=== PATIENT | male | born 1960 | race African-American/Black ===

== ENCOUNTER → 2016-06-19 | Day surgery (SDC) | payer MEDICARE, BC, MEDICAID ==
--- NOTE | 2016-06-18 14:07 | Pre-Procedure Note/Attestation ---
Pre-Procedure Note/Attestation Complete Prior to Procedure Planned Procedure: right - Removal of cataract and placement of intraocular lens, right eye Procedure Narrative: Removal of cataract and placement of intraocular lens, right eye Indications for Procedure Pre-Operative Diagnosis: cataract, nuclear, anterior subcapsular, right eye Attestation I attest that I discussed the nature of the procedure; its benefits; risks and complications; and alternatives (and the risks and benefits of such alternatives ), prior to the procedure, with the patient (or the patient's legal admissions representative). I attest that, if there was a reasonable possibility of needing a blood transfusion, the patient (or the patient's legal admissions representative) was given the [place] Department [facility] [employer] Services standardized written summary, pursuant to the Genaro Marcel Blood Safety Act ([place] Health and Safety Code # 1645, as amended). I attest that I re-evaluated the patient just prior to the surgery and that there has been no change in the patient's H&P, except as documented below: Benito García MD Jun 18, 2016 14:07
[2016-06-19] VITALS (8 sets, daily range): BP systolic 97–112; BP diastolic 59–66
[~2016-06-19] VITALS: Ht 182.9 cm; Wt 108.9 kg
[~2016-06-19] MED LIST: ALLOPURINOL100 M1 ORAL; ATORVASTATIN CA40 MG ORAL; Akten 3.5% 1ml Btl ONE; BSS 15ml BTL ONE; BSS 500ml btl ONE; BUMETANIDE2 MG ORAL; CARVEDILOL25 MG ORAL; CATAPRES0.1 MG ORAL; CELEXA20 MG ORAL; COLACE100 MG ORAL; COLCHICINE0.6 M1 PO; CORLANOR5 MG PO; COUMADIN1 MG ORAL; COUMADIN3 MG ORAL; COUMADIN6 MG ORAL; Carbachol 0.01% Op Soln 1.5ml vial ONE; Cyclopentolate 1% Opth Sol ONE; Dexamethasone 4mg/ml vial ONE; EPINEPHrine 1mg/1ml Amp ONE; FOLIC ACID1 MG ORAL; Fluorescein Strips ONE; Flurbiprofen 0.03% Opth Sol 2.5ml ONE; Gatifloxacin Opth Solution 0.5% ONE; HUMALOG KW200 UNIT/1 SQ; ISOSORBIDE MON120 M1 PO; LANTUS SOL100 UNIT/1 SUBQ; LISINOPRIL20 MG ORAL; Lidocaine 1% MPF 10mg/ml 5ml ONE; Lidocaine 4% Amp ONE; MULTIVITAMINS1 EA11 ORAL; Maxitrol Opth Oint 3.5gm ONE; Midazolam 2mg/2ml Inj ONE; NORCO 5-325 TA1 EACH ORAL; NS Irrig 1000ml ONE; Phenylephrine 10% Opth Soln 5ml ONE; Povidone-Iodine 5% opth solution ONE; Pred Forte 1% Opth Susp 1ml ONE; Pred Forte 1% Opth Susp 1ml RIGHT EYE ONE; Sodium Hyaluronate 10 mg/ml 0.85ml ONE; Sterile Water Irrig 1000ml IRRIG ONE; TEMAZEPAM15 MG ORAL; Tetracaine 0.5% Opth Soln ONE; VITAMIN D250000 UNI1 ORAL; fentaNYL 100 mcg/2 mL IV ONE
[2016-06-19] MEDS: Akten 3.5% 1ml Btl RIGHT EYE SCH ×3 (10:25→10:58)
[2016-06-19] MEDS: Cyclopentolate 1% Opth Sol RIGHT EYE SCH ×3 (10:25→10:58)
[2016-06-19] MEDS: Phenylephrine 10% Opth Soln 5ml RIGHT EYE SCH ×3 (10:25→10:58)
[2016-06-19] MEDS: Flurbiprofen 0.03% Opth Sol 2.5ml RIGHT EYE SCH ×3 (10:25→10:58)
[2016-06-19] MEDS: Gatifloxacin Opth Solution 0.5% RIGHT EYE SCH ×3 (10:26→10:58)
--- NOTE | 2016-06-19 12:31 | Brief Operative Note ---
Immediate Post Operative Note Operative Note Pre-op Diagnosis: cataract, nuclear, anterior subcapsular, right eye Procedure: phaco pc iol, OD use of vision blue Post-op Diagnosis: same as pre-op Surgeon: Glenna García MD Circuit Walker: None Anesthesiologist: Shannon Abarca CRNA Anesthesia: local, MAC Specimen: none Complications: none Condition: stable Estimated Blood Loss: none Implant(s) used?: Yes - tecnis [id number] +18.0 Benito García MD Jun 19, 2016 12:31
--- NOTE | 2016-06-19 12:32 | Discharge Instructions ---
Discharge Instructions Discharge Instructions Follow Up Orders Leave shield in place except to place eye drops Continue eye drops Followup in Dr García's office tomorrow For Congestive Heart Failure Reminder Report to your physician any weight gain of 5 pounds or more in one week. Benito García MD Jun 19, 2016 12:32
--- NOTE | 2016-06-19 12:38 | Anethesia Preoperative Eval ---
Anesthesia Pre-op PMH/ROS General Date of Evaluation: Jun 19, 2016 Time of Evaluation: 11:30 Anesthesiologist: yan ASA Score: ASA 3 Mallampati Score Class I : Soft palate, uvula, fauces, pillars visible Class II: Soft palate, uvula, fauces visible Class III: Soft palate, base of uvula visible Class IV: Only hard plate visible Mallampati Classification: Class III Surgeon: iesha Diagnosis: cataract Surgical Procedure: catract extraction Anesthesia History: none Family History: no anesthesia problems Allergies: Coded Allergies: No Known Allergies (Unverified , 06/06/15) Medications: see eMAR Past Medical History Cardiovascular: Reports: CAD, HTN, other - AICD , valve dz Gastrointestinal/Genitourinary: Reports: ESRD - dialysis 06/18/16 Neurologic/Psychiatric: Denies: CVA, TIA, dementia, depression/anxiety, other Endocrine: Reports: DM HEENT: Reports: cataract (L) Hematology/Immune: Denies: DVT, anemia, bleeding disorder, other Musculoskeletal/Integumentary: Denies: DDD, DJD, OA, RA, edema, other Other: obesity PSxH Narrative: AVR CABG x2 Anesthesia Pre-op Phys. Exam Physician Exam Last Vital Signs Date Time Temp Pulse Resp B/P Pulse Ox O2 Delivery O2 Flow Rate FiO2 06/19/16 10:32 98.0 81 18 104/59 98 Room Air Constitutional: NAD Neurologic: CN 2-12 intact Cardiovascular: RRR Respiratory: CTA Gastrointestinal: S/NT/ND Airway Exam Mallampati Classification 3 Mallampati Score: Class III MO: full Neck: thick ROM: full Dentures: no lower, no upper Anesthesia Pre-op A/P Labs Chemistry Test 06/19/16 10:45 Potassium Level 5.0 mEQ/L (3.4-4.9) H Studies Pre-op Studies: EKG - SR Risk Assessment & Plan Plan: mac Status Change Before Surgery: No Pre-Antibiotics Drug: none BRIANNA STOVALL CRNA Jun 19, 2016 12:38
--- NOTE | 2016-06-19 12:39 | Immediate Post-Op Evaluation ---
Immediate Post-Op Evalulation Immediate Post-Op Evalulation Procedure: cataract extraction with IOL Date of Evaluation: Jun 19, 2016 Time of Evaluation: 12:30 IV Fluids: 200 Blood Pressure Systolic: 109 Blood Pressure Diastolic: 81 Pulse Rate: 83 Respiratory Rate: 14 O2 Sat by Pulse Oximetry: 98 Temperature (Fahrenheit): 97.8 Nausea: No Vomiting: No Complications none Patient Status: awake, reacts Hydration Status: adequate Drug: none BRIANNA STOVALL CRNA Jun 19, 2016 12:39
--- NOTE | 2016-06-19 12:41 | 48 Hour Post Anesthesia Eval ---
Post Anesthesia Evaluation Procedure: cataract extraction with IOL right eye Date of Evaluation: Jun 19, 2016 Time of Evaluation: 12:40 Blood Pressure Systolic: 105 0: 60 Pulse Rate: 75 Airway: patent Nausea: No Vomiting: No Hydration Status: adequate Cardiopulmonary Status: normal Mental Status/LOC: patient returned to baseline Post-Anesthesia Complications: none Follow-up care needed: N/A BRIANNA STOVALL CRNA Jun 19, 2016 12:41
--- NOTE | 2016-06-19 21:48 | Operative Note - Dictated ---
DATE OF SURGERY: 06/19/2016 SURGEON: Benito García M.D. CREMATORY ATTENDANT SURGEON: None. ANESTHESIOLOGIST: Shannon Abarca C.R.N.A. ANESTHESIA: Local/standby/monitored anesthesia care. PREOPERATIVE DIAGNOSES: Cataract, nuclear, anterior subcapsular, right eye. POSTOPERATIVE DIAGNOSES: Cataract, nuclear, anterior subcapsular, right eye. PROCEDURE: 1. Phacoemulsification of cataract, right eye. 2. Use of VisionBlue, right eye. 3. Placement of PC IOL, OD SPECIMENS: None. COMPLICATIONS: None. INDICATIONS FOR SURGERY: The patient has had painless progressive decrease in visual acuity in the right eye secondary to cataract. The patient understands the risks of surgery including infection, bleeding, need for further surgery, loss of vision, no improvement in vision, loss of the eye, loss of life, glaucoma, retinal detachment, understands these risks and elects to proceed with surgery. FINDINGS: The patient had a +3 anterior subcapsular cataract which was in the central approximate 5 mm and a +2 to 3 nuclear sclerotic cataract. Operative Note: After informed consent was obtained, the patient was brought into the operating room, placed in supine position. Cardiac and respiratory monitors were attached. A time-out was performed and all criteria were met and everyone in the room agreed. The right eye was then draped and prepped in sterile manner for ocular surgery. A lid speculum was placed in the eye. Shugarcaine was injected into the 9 o'clock limbus. A conjunctiva peritomy from approximately 9 o'clock to 10:30 was made and dissected posteriorly. Hemostasis was obtained with bipolar cautery. A 2.8 mm limbal incision was made centered at approximately 9:30 and dissected anteriorly. A paracentesis was made at approximately 12 o'clock and air was injected into the anterior chamber followed by VisionBlue. VisionBlue was then irrigated from the anterior chamber. Healon was then injected into the anterior chamber and a 2.8 mm keratome was then used to enter the anterior chamber at the limbal incision. An anterior capsulorrhexis was then performed without difficulty. Hydrodissection and hydrodelineation of the lens was then performed. The lens was then phacoemulsified using [id number] four-quadrant technique. Residual cortical material was then aspirated. Healon was injected into the anterior chamber and capsular bag. The lens was taken from its package, placed into the cartridge and the tip of the cartridge was placed through the limbal incision and the lens was injected into the capsular bag and centered nicely with a Sinskey hook. Healon was aspirated from the anterior chamber and capsular bag. One 10-0 nylon interrupted suture was then placed through the limbal incision. The knot was rotated and buried. Care was taken during the entire procedure not to touch the endothelium and the wound was checked and found to be watertight at the limbus and the paracentesis site. The paracentesis site was hydrated closed. The conjunctiva was then closed with forceps cautery. The lid speculum and drapes were removed from the eye. One drop of Betadine was applied to the surface of the eye and then irrigated away. This was followed by Pred Forte drops, gatifloxacin drops and then Maxitrol ointment and shield. The patient tolerated the procedure well and left the operating room awake and alert in stable condition. Benito García M.D. DR: Iesha JOB#: [id number] CC: BRI
== END | disposition home or self-care (01) ==
LOC: SUR 09:30
DX: H25.11 Age-related nuclear cataract, right eye (principal); H25.031 Anterior subcapsular polar age-related cataract, right eye; E11.9 Type 2 diabetes mellitus without complications; Z79.4 Long term (current) use of insulin; I12.0 Hypertensive chronic kidney disease with stage 5 chronic kidney disease or end stage renal disease; N18.6 End stage renal disease; Z99.2 Dependence on renal dialysis; I50.9 Heart failure, unspecified; I42.9 Cardiomyopathy, unspecified; I25.10 Atherosclerotic heart disease of native coronary artery without angina pectoris; Z95.1 Presence of aortocoronary bypass graft; E78.00 Pure hypercholesterolemia, unspecified; F41.9 Anxiety disorder, unspecified; G47.00 Insomnia, unspecified; E66.9 Obesity, unspecified; Z68.30 Body mass index [BMI] 30.0-30.9, adult; Z95.810 Presence of automatic (implantable) cardiac defibrillator; Z95.2 Presence of prosthetic heart valve; Z79.899 Other long term (current) drug therapy
CPT/HCPCS: 36415; 66984; 82962; 84132; J0171; J1100; J2250; J3010; V2632; 94003; 94150

== ENCOUNTER 2017-11-12 11:49 | Day surgery (SDC) | payer MEDICARE, MEDICAID ==
--- NOTE | 2017-11-11 23:09 | Pre-Procedure Note/Attestation ---
Pre-Procedure Note/Attestation Complete Prior to Procedure Planned Procedure: left - Removal of cataract and placement of intraocular lens , left eye Procedure Narrative: Removal of cataract and placement of intraocular lens, left eye Indications for Procedure Pre-Operative Diagnosis: Cataract, combined, left eye Attestation I attest that I discussed the nature of the procedure; its benefits; risks and complications; and alternatives (and the risks and benefits of such alternatives ), prior to the procedure, with the patient (or the patient's legal representative phlebotomy services). I attest that, if there was a reasonable possibility of needing a blood transfusion, the patient (or the patient's legal representative phlebotomy services) was given the [place] Department [facility] [employer] Services standardized written summary, pursuant to the Genaro Chetek Blood Safety Act ([place] Health and Safety Code # 1645, as amended). I attest that I re-evaluated the patient just prior to the surgery and that there has been no change in the patient's H&P, except as documented below: Benito García MD Nov 11, 2017 23:09
[2017-11-12] VITALS (8 sets, daily range): BP systolic 91–119; BP diastolic 55–63
[~2017-11-12] VITALS: Ht 182.9 cm; Wt 104.3 kg
[~2017-11-12 11:49] MED LIST changes: -Akten 3.5% 1ml Btl ONE; -Carbachol 0.01% Op Soln 1.5ml vial ONE; -Cyclopentolate 1% Opth Sol ONE; -Fluorescein Strips ONE; -Flurbiprofen 0.03% Opth Sol 2.5ml ONE; -Gatifloxacin Opth Solution 0.5% ONE; -Midazolam 2mg/2ml Inj ONE; -NS Irrig 1000ml ONE; -Phenylephrine 10% Opth Soln 5ml ONE; +Pred Forte 1% Opth Susp 1ml LEFT EYE ONE; -Pred Forte 1% Opth Susp 1ml RIGHT EYE ONE; -Sterile Water Irrig 1000ml IRRIG ONE; +Tetracaine 0.5% Opth 4ml Soln ONE; -Tetracaine 0.5% Opth Soln ONE; -fentaNYL 100 mcg/2 mL IV ONE
--- NOTE | 2017-11-12 12:04 | Anethesia Preoperative Eval ---
Anesthesia Pre-op PMH/ROS General Date of Evaluation: Nov 12, 2017 Anesthesiologist: Jose ASA Score: ASA 4 Mallampati Score Class I : Soft palate, uvula, fauces, pillars visible Class II: Soft palate, uvula, fauces visible Class III: Soft palate, base of uvula visible Class IV: Only hard plate visible Mallampati Classification: Class III Surgeon: Raquel Diagnosis: Left cataract Surgical Procedure: Left cataract extraction with IOL Anesthesia History: none Family History: no anesthesia problems Allergies: Coded Allergies: No Known Allergies (Unverified , 06/06/15) Medications: see eMAR Past Medical History Cardiovascular: Reports: HTN, CAD - s/p CABG x2, valve dz - s/p AVR on eliquis- discocntinued on 11/10/17, arrhythmia - s/p AICD, other - HLD; Denies: [place] Pulmonary: Reports: COPD; Denies: asthma, ELVIE, other Gastrointestinal/Genitourinary: Reports: ESRD - on HD- last diallysis 11/11/17; Denies: GERD, CRI, other Neurologic/Psychiatric: Reports: CVA - in 2014, depression/anxiety; Denies: dementia, TIA, other Endocrine: Reports: DM, hypothyroidism; Denies: steroids, other HEENT: Reports: cataract (L); Denies: cataract (R), glaucoma, QAGAN TAYAGUNGIN (L), QAGAN TAYAGUNGIN (R), other Hematology/Immune: Reports: anemia - chronic; Denies: DVT, bleeding disorder, other Musculoskeletal/Integumentary: Reports: OA; Denies: RA, DJD, DDD, edema, other Other: obesity PSxH Narrative: CABG,AICD, Right cataract, ex-lap , clarke, RIHR Anesthesia Pre-op Phys. Exam Physician Exam see chart Constitutional: NAD Cardiovascular: RRR Respiratory: CTA Airway Exam Mallampati Score: Class II MO: limited ROM: limited Anesthesia Pre-op A/P Labs see chart Studies Pre-op Studies: EKG - sr Risk Assessment & Plan Assessment: ASA IV Plan: MAC Status Change Before Surgery: No Pre-Antibiotics Drug: N/A Breann London MD Nov 12, 2017 12:04
[2017-11-12] MEDS ORDERED: Akten 3.5% 1ml Btl ONE (12:19)
[2017-11-12] MEDS ORDERED: Phenylephrine 10% Opth Soln 5ml ONE (12:19)
[2017-11-12] MEDS ORDERED: Ciprofloxacin Opth Soln 2.5ml ONE (12:19)
[2017-11-12] MEDS ORDERED: Pred Forte 1% Opth Susp 1ml ONE (12:19)
[2017-11-12] MEDS ORDERED: Tropicamide 1% Opth 15ml Soln ONE (12:19)
[2017-11-12] MEDS ORDERED: Cyclopentolate 1% Opth Sol 2ml ONE (12:19)
[2017-11-12] MEDS: Ciprofloxacin Opth Soln 2.5ml LEFT EYE SCH ×3 (12:44→13:26)
[2017-11-12] MEDS: Cyclopentolate 1% Opth Sol 2ml LEFT EYE SCH ×3 (12:44→13:26)
[2017-11-12] MEDS: Tropicamide 1% Opth 15ml Soln LEFT EYE SCH ×3 (12:45→13:26)
[2017-11-12] MEDS: Akten 3.5% 1ml Btl LEFT EYE SCH ×3 (12:45→13:26)
[2017-11-12] MEDS: Phenylephrine 10% Opth Soln 5ml LEFT EYE SCH ×3 (12:45→13:26)
[2017-11-12] MEDS ORDERED: ELIQUIS2.5 MG PO (13:24)
[2017-11-12] MEDS ORDERED: Carbachol 0.01% Op Soln 1.5ml vial ONE (14:35)
[2017-11-12] MEDS ORDERED: fentaNYL 100 mcg/2 mL IV ONE (14:41)
[2017-11-12] MEDS ORDERED: DiphenhydrAMINE 50mg/ml Inj ONE (14:41)
[2017-11-12] MEDS ORDERED: Lidocaine 1% MPF 10mg/ml 5ml ONE (14:41)
[2017-11-12] MEDS ORDERED: Propofol 200mg/20ml IV ONE (14:41)
[2017-11-12] MEDS ORDERED: Sterile Water Irrig 1000ml IRRIG ONE (15:00)
[2017-11-12] MEDS ORDERED: DiphenhydrAMINE 50mg/ml Inj IVP PRN (15:00)
[2017-11-12] MEDS ORDERED: Labetalol 5mg/ml 20ml vial IV PRN (15:00)
[2017-11-12] MEDS ORDERED: LR 1000ml ONE (15:00)
[2017-11-12] MEDS ORDERED: NS Irrig 1000ml ONE (15:00)
--- NOTE | 2017-11-12 16:06 | Discharge Instructions ---
Discharge Instructions Discharge Instructions Follow Up Orders Wear shield at all times except to place eye drops Continue preop eye drops Followup tomorrow in Dr García's office Return to Work/School on: Nov 12, 2017 For Congestive Heart Failure Reminder Report to your physician any weight gain of 5 pounds or more in one week. Benito García MD Nov 12, 2017 16:06
--- NOTE | 2017-11-12 16:08 | Immediate Post-Op Evaluation ---
Immediate Post-Op Evalulation Immediate Post-Op Evalulation Procedure: Left cataract extraction with IOL Date of Evaluation: Nov 12, 2017 Time of Evaluation: 16:07 IV Fluids: 200 Blood Products: 0 Estimated Blood Loss: 0 Urinary Output: 0 Blood Pressure Systolic: 119 Blood Pressure Diastolic: 63 Pulse Rate: 92 Respiratory Rate: 16 O2 Sat by Pulse Oximetry: 99 Temperature (Fahrenheit): 98.3 Pain Score (1-10): 0 Nausea: No Vomiting: No Complications 0 Patient Status: awake, reacts, patent, none Hydration Status: adequate Drug: N/A Breann London MD Nov 12, 2017 16:08
--- NOTE | 2017-11-12 16:08 | Brief Operative Note ---
Immediate Post Operative Note Operative Note Pre-op Diagnosis: Cataract, combined, left eye Post-op Diagnosis: same as pre-op plus - very dense PSC and anterior subcapsular cataract Surgeon: Glenna García MD Imaging Assistant: none Anesthesiologist: Dr Carrillo Anesthesia: local, MAC Specimen: none Complications: none Fluids: see chart Implant(s) used?: Yes - tecnis [id number] 18.0 Benito García MD Nov 12, 2017 16:08
--- NOTE | 2017-11-12 16:09 | 48 Hour Post Anesthesia Eval ---
Post Anesthesia Evaluation Procedure: Left cataract extraction with IOL Date of Evaluation: Nov 12, 2017 Airway: patent Nausea: No Vomiting: No Pain Intensity: 0 Hydration Status: adequate Cardiopulmonary Status: at baseline Mental Status/LOC: patient returned to baseline Post-Anesthesia Complications: 0 Follow-up care needed: ready to discharge Breann London MD Nov 12, 2017 16:09
--- NOTE | 2017-11-13 04:45 | Operative Note - Dictated ---
DATE OF OPERATION: 11/12/2017 SURGEON: Benito García M.D. VIOLIN REPAIRER SURGEON: None. ANESTHESIOLOGIST: Dr. Carrillo. ANESTHESIA: Local/standby/monitored anesthesia care. PREOPERATIVE DIAGNOSIS: Combined cataract, left eye. POSTOPERATIVE DIAGNOSIS: Combined cataract, left eye. PROCEDURE: 1. Phacoemulsification of cataract, left eye. 2. Placement of posterior chamber intraocular lens, left eye (model Arce [id number], power 17.5). 3. Use of VisionBlue for capsular staining. SPECIMENS: None. COMPLICATIONS: None. INDICATIONS FOR SURGERY: The patient has advanced progressive decrease in visual acuity in the left eye secondary to cataract. The patient understands the risks of surgery including infection, bleeding, need for further surgery, loss of vision, no improvement in vision, loss of the eye, loss of life, glaucoma, and retinal detachment. He understands these risks and elects to proceed with surgery. FINDINGS: The patient had a +4 posterior subcapsular cataract as well as +2 nuclear cataract and +2 cortical cataract. The cortex was very sticky to the lens capsule. The capsule did remain intact throughout the entire procedure. The parts of the cortex were very difficult to remove. OPERATIVE NOTE: After informed consent was obtained, the patient was brought into the operating room and placed in supine position. Cardiac and respiratory monitors were attached. A time-out was performed and all criteria were met and everyone in the room agreed. The left eye was draped and prepped in sterile manner for ocular surgery. A lid speculum was placed in the eye. A 1% lidocaine preservative-free was injected at the approximate 2 o'clock limbus. A conjunctival peritomy from approximately 2 o'clock to 3 o'clock was made and dissected posteriorly. Hemostasis was maintained with bipolar cautery. A 2.6 mm limbal incision was made centered approximately at 2:30 and dissected anteriorly. Paracentesis was made at approximately 5:30 and Shugarcaine was injected into the anterior chamber. There was a very poor, very dull red reflex secondary to the dense posterior subcapsular cataract as well as the anterior subcapsular cataract. at this time I decided to use vision blue for capsular staining. After the Shugarcaine was injected into the anterior chamber, air was injected into the anterior chamber followed by VisionBlue. I then stained the capsule with the VisionBlue and then it was irrigated out. Healon was then injected into the anterior chamber and the anterior chamber was then entered using a 2.6 mm keratome through the limbal incision. An anterior capsulorrhexis was then performed. Hydrodissection and hydrodelineation of the lens was then performed. The lens was then phacoemulsified using a divide and conquer four-quadrant technique. Residual cortical material was aspirated, though there was a small part of residual cortical material stuck to the capsule at approximately 2:30 was very difficult to remove. Healon was injected into the anterior chamber and capsular bag. The lens was taken from its package, placed into the cartridge, and the tip of the cartridge was placed through the limbal incision and the lens was injected into the capsular bag and centered nicely with a Sinskey hook. Some of the lens cortex did become lose andat that time and I was able to aspirate as much as possible. One 10-0 nylon interrupted suture was placed through the limbal incision and the knot was rotated and buried. Care was taken during the entire procedure not to touch the epithelium. The wounds were checked and found to be watertight. Conjunctiva was then closed with forceps cautery. The lid speculum and drapes were removed from the eye. Drops of ciprofloxacin and Pred Forte were applied to the eye followed by Maxitrol ointment. The patient tolerated the procedure well and left the operating room in awake, alert, and stable condition. Benito García M.D. DR: NANO JOB#: [id number] CC: BRI
== END 2017-11-12 17:31 | disposition home or self-care (01) ==
LOC: SUR 11:49
DX: H25.812 Combined forms of age-related cataract, left eye (principal); E11.22 Type 2 diabetes mellitus with diabetic chronic kidney disease; I13.2 Hypertensive heart and chronic kidney disease with heart failure and with stage 5 chronic kidney disease, or end stage renal disease; I50.9 Heart failure, unspecified; N18.6 End stage renal disease; Z99.2 Dependence on renal dialysis; Z79.4 Long term (current) use of insulin; M10.9 Gout, unspecified; E78.1 Pure hyperglyceridemia; E29.1 Testicular hypofunction; E03.9 Hypothyroidism, unspecified; E78.00 Pure hypercholesterolemia, unspecified; E55.9 Vitamin D deficiency, unspecified; I25.10 Atherosclerotic heart disease of native coronary artery without angina pectoris; Z95.1 Presence of aortocoronary bypass graft; J44.9 Chronic obstructive pulmonary disease, unspecified; F32.9 Major depressive disorder, single episode, unspecified; F41.9 Anxiety disorder, unspecified; D64.9 Anemia, unspecified; Z86.718 Personal history of other venous thrombosis and embolism; Z87.19 Personal history of other diseases of the digestive system; Z86.79 Personal history of other diseases of the circulatory system
CPT/HCPCS: 36415; 66984; 82962; 84132; J0171; J1100; J1200; J2704; J3010; J7120; V2632; 94003; 94150